=== PATIENT | female | born 1980 | race Caucasian/White ===

== ENCOUNTER 2023-11-24 20:57 | Emergency (ER) | payer BC ==
[~2023-11-24] VITALS: Ht 177.8 cm; Wt 85.7 kg
[2023-11-24 21:16] VITALS: TEMP 99
[2023-11-24] MEDS: dexaMETHasone SOD PHOSPHATE 4 MG/ML 1ML VIAL IVP ONE (21:40)
[2023-11-24] MEDS: cefTRIAXone 1G VIAL IVPB ONE (21:40)
[2023-11-24] MEDS: teTANUS/diphthERIA TOXOID [ADULT] 0.5 ML VIAL IM ONE (21:51)
[2023-11-24] MEDS ORDERED: CLIN-141 PO (22:03)
[2023-11-24] MEDS ORDERED: MUPI15CR12 TP (22:03)
[2023-11-24] MEDS: MUPIROCIN OINTMENT 22 GM TUBE TP SCH (22:10)
[2023-11-24 22:31] VITALS: BP 123/86; PULSE 88; RESP 18; O2SAT 97
== END 2023-11-24 22:33 | disposition home or self-care (01) ==
LOC: EDH 20:57
DX: L03.116 Cellulitis of left lower limb (principal); Z88.2 Allergy status to sulfonamides; Z98.51 Tubal ligation status
CPT/HCPCS: 99284; 96365; 96375; 87070; 87076; 90714; 90471; J1100; J0696